=== PATIENT | male | born 1965 | race African-American/Black ===

== ENCOUNTER 2016-09-06 18:49 | Emergency (ER) | payer BC, OTHER ==
[~2016-09-06 18:49] MED LIST: Sodium Chloride Irrig Solution 250 ML BOT ONE
[2016-09-06] MEDS ORDERED: Cephalexin 500 MG CAP ONE (20:46)
[2016-09-06] MEDS ORDERED: Sulfameth/Trimethoprim DS 800-160mg TAB ONE (20:46)
[2016-09-06] MEDS ORDERED: HYDROcodone/Acetaminophen 10/325 mg Tablet ONE (20:46)
[2016-09-06] MEDS ORDERED: Triple Antibiotic Oint 1 GM Packet ONE (20:47)
== END 2016-09-06 21:10 | disposition home or self-care (01) ==
LOC: MADERS 18:49
DX: S61.412A Laceration without foreign body of left hand, initial encounter (principal); W25.XXXA Contact with sharp glass, initial encounter
CPT/HCPCS: 12002; J2001